=== PATIENT | female | born 1940 | race Caucasian/White ===

== ENCOUNTER → 2016-08-03 | Outpatient (CLI) | payer MEDICARE, OTHER | LOC: RAD 09:24 | PROVIDERS: ATTEND Surgery | DX: K44.9 Diaphragmatic hernia without obstruction or gangrene (principal) | CPT/HCPCS: 74220 ==

== ENCOUNTER → 2016-12-28 | Outpatient (CLI) | payer MEDICARE, OTHER ==
--- NOTE | 2016-12-28 17:18 | RADIOLOGY REPORT (SQ) ---
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 TECHNIQUE: Under fluoroscopic guidance, patient ingested effervescent granules followed by thick and thin barium. Fluoroscopic spot images and routine radiographic images acquired and stored on PACS. 12 MM BARIUM TABLET GIVEN: The patient swallowed a 12 mm barium tablet without difficulty. The table t remained in the distal esophagus for approximately 10 minutes before passing into the stomach. LIMITATIONS: None. FLUOROSCOPY TIME: FLUORO TIME: 1.48 minutes 9 images saved to PACS. FINDINGS: NEUROMUSCULAR COORDINATION OF SWALLOW: Normal. No aspiration. ESOPHAGEAL MOTILITY: Mild tertiary contractions in distal esophagus. ESOPHAGEAL MUCOSA: Normal mucosa without masses or ulceration. GASTRO-ESOPHAGEAL JUNCTION: No hiatal hernia or reflux. Mild narrowing of the distal esophagus and s urgical changes noted at the GE junction, consistent with gastric wrap. NON-GI TRACT STRUCTURES: No significant finding. OTHER: No other significant finding. IMPRESSION: SURGICAL CHANGES NOTED AT GE JUNCTION CONSISTENT WITH GASTRIC WRAP. MILD TERTIARY CONTR ACTIONS OF THE DISTAL ESOPHAGUS. OTHERWISE UNREMARKABLE STUDY. COMMENT: None Quality ID 145: Final reports for procedures using fluoroscopy that document radiation exposure laverne melina, or exposure time and number of fluorographic images (if radiation exposure indices are not avail able) TECHNICAL DOCUMENTATION: JOB ID: [id number] [employer]- All Rights Reserved
== END ==
LOC: RAD 07:57
PROVIDERS: ATTEND Thoracic Surgery (Cardiothoracic Vascular Surgery)
DX: K44.9 Diaphragmatic hernia without obstruction or gangrene (principal)
CPT/HCPCS: 74210

== ENCOUNTER → 2018-02-09 | Outpatient (CLI) | payer MEDICARE, OTHER ==
--- NOTE | 2018-02-09 13:28 | RADIOLOGY REPORT (SQ) ---
EXAM DESCRIPTION: BARIUM SWALLOW ESOPHAGUS COMPLETED DATE/TIME: 02/09/2018 10:05 am REASON FOR STUDY: OTHER SPECIFIED POSTPROCEDURAL STATES Z98.890 OTHER SPECIFIED POSTPROCEDURAL STAT ES Z87.19 PERSONAL HISTORY OF OTHER DISEASES OF THE DIGESTIVE S COMPARISON: Barium swallow 08/03/2016. TECHNIQUE: Under fluoroscopic guidance, patient ingested thick and thin barium. Fluoroscopic spot im ages and routine radiographic images acquired and stored on PACS. 12 MM BARIUM TABLET GIVEN: The patient swallowed a 12 mm barium tablet which passed easily through th e esophagus and into the stomach without delay. LIMITATIONS: None. FLUOROSCOPY TIME: 2.2 minutes 8 images saved to PACS. FINDINGS: NEUROMUSCULAR COORDINATION OF SWALLOW: Normal. No aspiration. ESOPHAGEAL MOTILITY: Mild esophageal dysmotility with mild tertiary contractions seen. ESOPHAGEAL MUCOSA: Normal mucosa without masses or ulceration. GASTRO-ESOPHAGEAL JUNCTION: Surgical changes consistent with gastric fundoplication. No hiatal herni a or reflux. NON-GI TRACT STRUCTURES: No significant finding. OTHER: No other significant finding. IMPRESSION: SURGICAL CHANGES CONSISTENT WITH GASTRIC FUNDOPLICATION, WITHOUT COMPLICATION NOTED. WY LD TERTIARY CONTRACTIONS IN THE ESOPHAGUS. OTHERWISE UNREMARKABLE STUDY. COMMENT: NONE Quality ID 145: Final reports for procedures using fluoroscopy that document radiation exposure laverne melina, or exposure time and number of fluorographic images (if radiation exposure indices are not avail able) TECHNICAL DOCUMENTATION: JOB ID: [id number] [employer]- All Rights Reserved Reading location - IP/workstation name: [email or web address] [id number]
== END ==
LOC: RAD 09:01
PROVIDERS: ATTEND Thoracic Surgery (Cardiothoracic Vascular Surgery)
DX: Z98.890 Other specified postprocedural states (principal); Z87.19 Personal history of other diseases of the digestive system; Z09 Encounter for follow-up examination after completed treatment for conditions other than malignant neoplasm
CPT/HCPCS: 74220

== ENCOUNTER → 2018-12-08 | Outpatient (CLI) | payer MEDICARE, OTHER ==
[2018-12-08 09:44] LABS: HEMATOCRIT 38.3 % (36.0-47.0); HEMOGLOBIN 12.7 g/dL (12.0-15.5); MEAN CORPUSCULAR HEMOGLOBIN 28.3 pg (27.0-33.4); MEAN CORPUSCULAR HGB CONC 33.1 g/dL (32.0-36.0); MEAN CORPUSCULAR VOLUME 86 fl (80-97); PLATELET COUNT 471 10^3/uL (150-450); RED BLOOD COUNT 4.47 10^6/uL (3.72-5.28); RED CELL DISTRIBUTION WIDTH 13.8 % (11.5-14.0); WHITE BLOOD COUNT 9.3 10^3/uL (4.0-10.5)
[2018-12-08 10:13] LABS: ABSOLUTE LYMPHOCYTES# (MANUAL) 1.5 10^3/uL (0.5-4.7); ABSOLUTE MONOCYTES # (MANUAL) 1.6 10^3/uL (0.1-1.4); ABSOLUTE NEUTROPHILS# (MANUAL) 5.5 10^3/uL (1.7-8.2); BASOPHILS % (MANUAL) 2 % (0-2); EOSINOPHILS % (MANUAL) 6 % (0-6); LYMPHOCYTES % (MANUAL) 15 % (13-45); MONOCYTES % (MANUAL) 17 % (3-13); SEGMENTED NEUTROPHILS % (MAN) 59 % (42-78); TOTAL CELLS COUNTED 100
[2018-12-08 10:14] LABS: PLATELET CLUMPS PRESENT; PLATELET COMMENT INCREASED; RBC MORPHOLOGY COMMENT NORMO-CYTIC/CHROMIC
== END ==
LOC: OD 08:12
PROVIDERS: ATTEND Internal Medicine Pulmonary Disease
DX: R06.00 Dyspnea, unspecified (principal)
CPT/HCPCS: 36415; 82785; 85025; 86003

== ENCOUNTER → 2019-04-17 | Outpatient (CLI) | payer MEDICARE, OTHER ==
--- NOTE | 2019-04-17 13:50 | RADIOLOGY REPORT (SQ) ---
EXAM DESCRIPTION: BARIUM SWALLOW ESOPHAGUS COMPLETED DATE/TIME: 04/17/2019 9:41 am REASON FOR STUDY: POST OP STATUS/PERSONAL HISTORY OF OTHER DISEASES OF THE DIGESTIVE SYSTEM Z98.890 OTHER SPECIFIED POSTPROCEDURAL STATES Z87.19 PERSONAL HISTORY OF OTHER DISEASES OF THE DIGESTIVE S COMPARISON: CT abdomen pelvis without contrast 04/19/2016 Barium swallow 08/03/2016, 12/28/2016 TECHNIQUE: Under fluoroscopic guidance, patient ingested effervescent granules followed by thick and thin barium. Fluoroscopic spot images and routine radiographic images acquired and stored on PACS. 12 MM BARIUM TABLET GIVEN: Yes. Patient has a Nate fundoplication. The pill paused in the distal esophagus above the Nate fundop lication for about 4 minutes before dropping through into the stomach. This reproduced the patient's symptoms. This is similar compared to the prior study from 12/28/2016. LIMITATIONS: None. FLUOROSCOPY TIME: FLUORO TIME: 2 minutes 23 seconds 19 series of fluoroscopic images saved to PACS. FINDINGS: NEUROMUSCULAR COORDINATION OF SWALLOW: Normal. No aspiration. ESOPHAGEAL MOTILITY: Normal peristalsis. No esophageal spasm. ESOPHAGEAL MUCOSA: Normal mucosa without masses or ulceration. GASTRO-ESOPHAGEAL JUNCTION: Patient is post Nate fundoplication. 12 mm barium tablet paused in the distal esophagus above the fundoplication for about 4 minutes before dropping through into the stoma ch. This reproduced the patient's symptoms. There is trace distal gastroesophageal reflux during th e study. NON-GI TRACT STRUCTURES: No significant finding. OTHER: No other significant finding. IMPRESSION: Intact Nate fundoplication. 12 mm barium tablet paused above the fundoplication for a bout 4 minutes, reproducing the patient's symptoms. Trace gastroesophageal reflux COMMENT: Quality ID 145: Final reports for procedures using fluoroscopy that document radiation exp osure indices, or exposure time and number of fluorographic images (if radiation exposure indices are not available) TECHNICAL DOCUMENTATION: JOB ID: [id number] [employer]- All Rights Reserved Reading location - IP/workstation name: [email or web address]
== END ==
LOC: RAD 08:58
PROVIDERS: ATTEND Thoracic Surgery (Cardiothoracic Vascular Surgery)
DX: K21.9 Gastro-esophageal reflux disease without esophagitis (principal); Z98.890 Other specified postprocedural states; Z87.19 Personal history of other diseases of the digestive system
CPT/HCPCS: 74220

== ENCOUNTER → 2019-09-25 | Outpatient (CLI) | payer MEDICARE, OTHER ==
--- NOTE | 2019-09-25 10:32 | RADIOLOGY REPORT (SQ) ---
EXAM DESCRIPTION: BARIUM SWALLOW ESOPHAGUS COMPLETED DATE/TIME: 09/25/2019 9:44 am REASON FOR STUDY: DYSPHAGIA (R13.10), DIAPHRAGMATIC HERNIA WITHOUT OBSTRUCTION OR GANG(K44.9) K44.9 DIAPHRAGMATIC HERNIA WITHOUT OBSTRUCTION OR GANGRENE R13.10 DYSPHAGIA, UNSPECIFIED COMPARISON: BARIUM SWALLOW 04/17/2019 TECHNIQUE: Under fluoroscopic guidance, patient ingested effervescent granules followed by thick and thin barium. Fluoroscopic spot images and routine radiographic images acquired and stored on PACS. 12 MM BARIUM TABLET GIVEN: Yes. Delayed passage at the GE junction LIMITATIONS: None. FLUOROSCOPY TIME: FLUORO TIME: 2.2 minutes of fluoroscopy was used. 11 images saved to PACS. FINDINGS: NEUROMUSCULAR COORDINATION OF SWALLOW: Normal. No aspiration. ESOPHAGEAL MOTILITY: Slow primary peristalsis. No esophageal spasm. ESOPHAGEAL MUCOSA: Normal mucosa without masses or ulceration. GASTRO-ESOPHAGEAL JUNCTION: There is narrowing of the distal esophagus from Franki fundoplication. T his did delay passage of a 12 mm barium tablet for approximately 5 minutes. No hiatal hernia. No re flux. NON-GI TRACT STRUCTURES: No significant finding. OTHER: No other significant finding. IMPRESSION: INTACT FRANKI FUNDOPLICATION CAUSING NARROWING OF THE DISTAL ESOPHAGUS AT THE GE JUNCTIO N DELAY IN PASSAGE OF A 12 MM BARIUM TABLET FOR APPROXIMATELY 5 MINUTES. ESOPHAGEAL DYSMOTILITY. COMMENT: Quality ID 145: Final reports for procedures using fluoroscopy that document radiation exp osure indices, or exposure time and number of fluorographic images (if radiation exposure indices are not available) TECHNICAL DOCUMENTATION: JOB ID: [id number] [employer]- All Rights Reserved Reading location - IP/workstation name: [email or web address] [id number]
== END ==
LOC: RAD 07:51
PROVIDERS: ATTEND Thoracic Surgery (Cardiothoracic Vascular Surgery)
DX: K44.9 Diaphragmatic hernia without obstruction or gangrene (principal); R13.10 Dysphagia, unspecified
CPT/HCPCS: 74220